=== PATIENT | male | born 1965 | race Two or more races ===

== ENCOUNTER 2019-10-03 20:04 | Emergency (ER) | payer SELFPAY ==
[~2019-10-03] VITALS: Ht 170.2 cm; Wt 91.0 kg
[2019-10-03] MEDS ORDERED: IBUPROFEN 600MG TABLET PO ONE (21:00)
[2019-10-03] MEDS ORDERED: TETRACAINE 0.5% OPHTH DROPS 4ML EACHEYE ONE (21:00)
[2019-10-03] MEDS ORDERED: FLUORESCEIN SODIUM 1MG/STRIP LEFTEYE ONE (21:00)
[2019-10-03 21:25] VITALS: BP 132/88
== END 2019-10-03 22:11 | disposition home or self-care (01) ==
LOC: ER 20:04
DX: S05.02XA Injury of conjunctiva and corneal abrasion without foreign body, left eye, initial encounter (principal); X58.XXXA Exposure to other specified factors, initial encounter; Y93.89 Activity, other specified; Y92.9 Unspecified place or not applicable
CPT/HCPCS: 99283